=== PATIENT | female | born 1940 | race Caucasian/White ===

== ENCOUNTER → 2019-07-08 | Outpatient (CLI) | payer MEDICARE ==
--- NOTE | 2019-07-08 16:24 | RADIOLOGY REPORT (SQ) ---
EXAM DESCRIPTION: MRI LT LOWER JOINT WITHOUT COMPLETED DATE/TIME: 07/08/2019 4:07 pm REASON FOR STUDY: M25.552 PAIN IN LEFT HIP M51.36 OTHER INTERVERTEBRAL DISC DEGENERATION, LUMBAR RE GION M25.552 PAIN IN LEFT HIP COMPARISON: MRI lumbar spine same date TECHNIQUE: [employer]ef[employer] images acquired and stored on PACS. Multiplanar images to include fat sensitive s equences as T1, fluid sensitive sequences as T2/STIR and gradient echo sequences. Large FOV fat and f luid sensitive sequences include pelvis and opposite hip. LIMITATIONS: None. FINDINGS: BONE CORTEX AND MARROW: No generalized marrow replacement. No occult fracture. No worriso me bone lesions. LEFT HIP: FEMORAL HEAD: No occult fracture. No osteophytes or subchondral cysts. Normal sphericity of femoral h ead/neck junction. No acetabular dysplasia. No evidence femoroacetabular impingement. No significant effusion. Minimal age-appropriate chondromalacia. ACETABULUM: No acetabular dysplasia. Minimal age-appropriate chondromalacia. No subchondral cysts. LABRUM: Grossly intact. No paralabral cysts TROCHANTER: Large trochanteric bursa the effusion, 7 x 4.5 x 1.5 cm in size. There is minimal edema at the distal gluteal tendons attachment to the greater trochanter RIGHT HIP: Limited evaluation. No worrisome bone lesions. No significant effusion. Trace fluid rig ht trochanteric bursa PELVIS, LOWER LUMBAR SPINE, SACROILIAC JOINTS: PELVIS : No insufficiency/stress fractures. No significant degenerative changes. Sacroiliac joints normal. L SPINE: Lumbar facet arthropathy. Please see MRI same date MUSCLES AND SOFT TISSUES: Adductors and piriformis normal. Abductors and greater trochanteric bursa n ormal without edema or fluid. Iliopsoas bursa without fluid. Hamstring attachments without edema or t ear. PELVIC SOFT TISSUES: No masses or adenopathy. Post hysterectomy SCIATIC NERVE: Identified, without masses or abnormal signal. OTHER: No other significant finding. IMPRESSION: Large left hip trochanteric bursal effusion TECHNICAL DOCUMENTATION: JOB ID: [id number] [employer]- All Rights Reserved Reading location - IP/workstation name: [id number]
--- NOTE | 2019-07-08 16:29 | RADIOLOGY REPORT (SQ) ---
EXAM DESCRIPTION: MRI LUMBAR SPINE WITHOUT COMPLETED DATE/TIME: 07/08/2019 4:07 pm REASON FOR STUDY: M51.36 OTHER INTERVERTEBRAL DISC DEGENERATION, LUMBAR REGION M51.36 OTHER INTERVE RTEBRAL DISC DEGENERATION, LUMBAR REGION M25.552 PAIN IN LEFT HIP COMPARISON: MRI left hip same date TECHNIQUE: Sagittal and Axial imaging includes T1, T2, STIR and gradient echo sequences. Coronal T2/ HASTE imaging. LIMITATIONS: None. FINDINGS: VISUALIZED UPPER ABDOMEN: Limited evaluation. No acute or suspicious findings suggested. SEGMENTATION: No transitional anatomy. The lowest well-developed disc space is labeled L5-S1. ALIGNMENT: Convex rightward lumbar curvature VERTEBRAE: Intact. BONE MARROW: Normal. No marrow replacement or reactive changes. DISC SIGNAL: Multilevel disc space loss of height throughout the lumbar spine, diffuse decreased T2 w eighted intervertebral disc signal throughout the lumbar spine. POSTERIOR ELEMENTS: Generally intact. No pars defect evident. HARDWARE: None in the spine. CORD AND CONUS: Normal in size and signal intensity. Conus at the T12-L1 level. SOFT TISSUES: No aortic aneurysm seen. No bulky retroperitoneal adenopathy or mass. No paraspinal mas s or fluid. T11-12: At the upper edge of the field of view. No central or foraminal stenosis. Mild bilateral f acet hypertrophy T12-L1: No central or foraminal stenosis. Mild bilateral facet hypertrophy L1-L2: Minimal posterior disc bulging, mild bilateral facet and ligament hypertrophy. No central can al stenosis. No significant foraminal narrowing. L2-L3: Mild posterior disc bulging, mild bilateral facet and ligament hypertrophy. No central stenos is. Mild bilateral inferior foraminal narrowing without exiting L2 nerve root impingement. L3-L4: Mild diffuse disc bulge, moderate bilateral facet and ligament hypertrophy. Borderline centra l canal narrowing with flattening of the thecal sac into a triangular shape, best shown on axial T2 i mage 15. There is mild right and moderate left foraminal narrowing without exiting L3 nerve root imp ingement. L4-L5: Broad diffuse posterior disc bulging, moderate bilateral facet and ligament hypertrophy. Bord nichelle central canal narrowing best shown on axial T2 image 21. Mild bilateral inferior foraminal na rrowing without exiting L3 nerve root impingement. L5-S1: Mild bilateral facet hypertrophy. No central or foraminal stenosis. SACRUM: Visualized upper sacrum intact. OTHER: No other significant findings. IMPRESSION: Multilevel mild degenerative disc changes without high-grade central or foraminal encroa chment. TECHNICAL DOCUMENTATION: JOB ID: [id number] [employer]- All Rights Reserved Reading location - IP/workstation name: [id number]
== END ==
LOC: RAD 14:48
PROVIDERS: ATTEND Orthopaedic Surgery Sports Medicine
DX: M51.36 Other intervertebral disc degeneration, lumbar region (principal); M25.452 Effusion, left hip; M25.552 Pain in left hip
CPT/HCPCS: 72148